=== PATIENT | male | born 1950 | race Caucasian/White ===

== ENCOUNTER 2023-01-16 11:48 | Emergency (ER) | payer BC, SELFPAY ==
--- NOTE | ~2023-01-16 | CT_ITS ---
EXAMINATION: CT ABDOMEN AND PELVIS WITH CONTRAST CLINICAL INFORMATION: Pain. COMPARISON: None available. TECHNIQUE: Multidetector volumetric images were obtained from the superior aspect of the liver through the pubic symphysis following administration 85 mL of Omnipaque 350 intravenous contrast. Sagittal and coronal reformatted images were obtained on the technologist's workstation. Oral contrast: No This CT examination was performed using dose optimization techniques as appropriate, variously including the following: *Automated exposure control *Adjustment of mA and/or kV according to patient size (this includes techniques or standardized protocols for targeted exams where dose is matched to indication/reason for exam; i.e. extremities or head) *Use of iterative reconstruction technique DLP: 511 mGy-cm FINDINGS: LUNG BASES: There is minimal dependent atelectatic change at the lung bases. LIVER, GALLBLADDER, AND BILIARY TREE: The liver is normal in size, shape, and attenuation. No focal hepatic lesion or biliary ductal dilatation is present. The gallbladder is unremarkable with no evidence of radiopaque gallstones, gallbladder wall thickening, or obvious pericholecystic inflammatory changes. PANCREAS: Atrophic. SPLEEN: Unremarkable. ADRENAL GLANDS: Unremarkable. KIDNEYS AND URETERS: The kidneys are normal in size, shape, and attenuation. No hydronephrosis, hydroureter, or calculi seen. No perinephric stranding. BLADDER: Unremarkable. GASTROINTESTINAL TRACT: There are diverticula of the descending and the sigmoid colon without diverticulitis. The appendix is not identified as a separate structure. There are mildly dilated mid small bowel loops measuring up to 3.1 cm entering an umbilical hernia with normal caliber bowel exiting the hernia and distended bowel within the hernia. ABDOMINAL WALL: There is an umbilical hernia containing portions of small bowel and some fluid. LYMPH NODES: Normal. VASCULAR: Unremarkable. PELVIC VISCERA: Unremarkable. OSSEOUS STRUCTURES: There is diffuse thoracolumbar disc degenerative change. CT/CT abdomen pelvis w IV con IMPRESSION: Mildly dilated mid small bowel loops entering an umbilical hernia containing distended small bowel and fluid within normal caliber exiting small bowel. Findings consistent with bowel incarceration with early or partial small bowel obstruction. 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 Fleischner guidelines were followed.
[2023-01-16 11:52] VITALS: BP 110/60; PULSE 48; O2SAT 99; BMI 27.3
[2023-01-16 12:03] VITALS: BP 141/45; PULSE 52; RESP 16; TEMP 36.4; O2SAT 100
[2023-01-16 13:02] VITALS: BP 149/64; PULSE 56; RESP 16; TEMP 36.4; O2SAT 96
[2023-01-16 13:06] LABS: Basophils Absolute Auto 0.1 X10*3/uL (0.0-0.2); Basophils Percent Auto 0.7 % (0-2); Eosinophils Absolute Auto 0.1 X10*3/uL (0.0-0.4); Eosinophils Percent Auto 1.9 % (0-4); Hematocrit 35.3 % (42.0-52.0); Hemoglobin 11.4 g/dl (14.0-18.0); Imm Gran Abs Auto 0.02 X10*3/uL (0.00-0.03); Imm Gran Pct Auto 0.3 % (0.0-0.4); Lymphocytes Absolute Auto 1.7 X10*3/uL (1.2-4.9); Lymphocytes Percent Auto 22.9 % (20-40); MANUAL DIFF FLAG NO; Mean Corpuscular HGB Conc 32.3 g/dl (31.0-36.0); Mean Corpuscular Hemoglobin 28.8 pg (27.0-33.0); Mean Corpuscular Volume 89.1 fL (80.0-98.0); Mean Platelet Volume 10.3 fL (9.4-12.4); Monocytes Absolute Auto 0.5 X10*3/uL (0.1-1.2); Monocytes Percent Auto 6.1 % (2-11); Neutrophils Absolute Auto 5.2 x10*3/uL (2.0-8.3); Neutrophils Percent Auto 68.1 % (45-73); Platelet Count 206 X10*3/uL (160-400); Red Blood Count 3.96 X10*6/uL (4.60-5.80); Red Cell Distribution Width 14.9 % (11.0-16.0); White Blood Count 7.6 X10*3/uL (4.8-10.8)
--- NOTE | 2023-01-16 13:16 | ED_ITS ---
HPI - Abdominal Pain General Chief Complaint: Abdominal Pain Stated Complaint: LRQ PAIN Time Seen by Provider: 01/16/23 12:28 Source: patient Mode of arrival: ambulatory Limitations: no limitations History of Present Illness HPI narrative: It is is a 72-year-old male history of recent intracranial hemorrhage with aphasia , no past abdominal surgical history presenting to the emergency department with complaints of abdominal pain that started this morning at approximately 10:30, patient reports initially the pain was localized to the left side of his abdomen now on the right, reports pain was severe in nature, 10 now is a little bit more tolerable however localized to the right side of his abdomen worse if he presses on his abdomen. He reports some associated nausea however no vomiting. Denies urinary changes, changes in bowel habits, fevers, chills, chest pain, shortness of breath, headache, vision changes, dizziness and weakness Related Data Previous Rx's Medication Instructions Recorded morphine 15 mg immediate release 15 mg PO Q6H PRN pain 5 days #10 01/16/23 tablet tabs Allergies Allergy/AdvReac Type Severity Reaction Status Date / Time No Known Allergies Allergy Verified 01/16/23 11:52 Review of Systems Review of Systems Constitutional : No Weight loss, No Fever, No Chills, No Fatigue, No Malaise ENT/Mouth : No sore throat, No Rhinorrhea Eyes: No Eye Pain, No Swelling, No Redness Cardiovascular : No Chest Pain, No SOB, No Dyspnea on Exertion, No Orthopnea, No Edema, No Palpitations Respiratory : No Cough, No Sputum, No Wheezing Gastrointestinal : + Nausea, No Vomiting, No Diarrhea, No Constipation, + abdominal Pain, No Hematochezia, No Melena Genitourinary : No Dysuria, No Urinary Frequency, No Hematuria, Musculoskeletal : No joint pain, No Myalgias, No Joint Swelling Skin : No Skin Lesions, No rash Neuro : No Weakness, No Numbness, No Dizziness, No Headache Psych : No Anxiety/Panic, No Depression All other systems reviewed and are negative Yes all other systems are reviewed and are negative [facility] Past Medical History Attestation statement: The following information was validated with the patient. Source: old records reviewed and nursing notes reviewed Social History Social History Smoked in Last 30 Days: No Use of substances other than those prescribed or required for medical reasons: No Advance Directives: No Advance Directives Information Provided: No Physical Exam ED Vital Signs: Vital Signs - 24 hr 01/16/23 12:03 01/16/23 13:02 01/16/23 14:46 Temperature 97.6 F 97.6 F Pulse Rate 52 56 53 Respiratory Rate 16 16 14 Blood Pressure 141/45 H 149/64 H 158/76 H Pulse Oximetry 100 96 100 Oxygen Delivery Method Room Air Room Air Oxygen Flow Rate 99 01/16/23 15:44 Temperature 97.9 F Pulse Rate 59 Respiratory Rate 16 Blood Pressure 162/66 H Pulse Oximetry 97 Oxygen Delivery Method Room Air Oxygen Flow Rate BMI result Body Mass Index 27.3 vss Appearance: Alert.? Oriented X3.? No acute distress.? Head: Normocephalic, atraumatic, no step-offs or deformities Eyes: Pupils equal, round and reactive to light.? ENT: Pharynx normal.? Neck: Normal inspection.? Neck supple.? CVS: Normal heart rate and rhythm.? Pulses normal.? Respiratory: No respiratory distress.? Breath sounds normal.? Abdomen: Soft and tenderness to palpation to entire right side of abdomen.? Normoactive bowel sounds throughout. Skin: Skin warm and dry.? Normal skin color.? Normal skin turgor.? Extremities: No lower extremity edema.? No calf ttp. 5/5 strength to bilateral upper and lower extremities Neuro: Oriented X 3.? No motor deficit.? No sensory deficit. CN 2-12 intact Course Reevaluation(s) Reevaluation #1: CBC with no acute findings requiring intervention there is a normocytic anemia noted. Chemistry with slightly elevated BUN likely secondary to poor p.o. intake/dehydration. Normal lipase. CT abdomen and pelvis pending. Urine pending. Time: 14:53 Reevaluation #2: CT scan showing mildly dilated small bowel loops entering an umbilical hernia containing distended small bowel with fluid and normal caliber our existing small bowel findings consistent with bowel incarceration with earlier partial small bowel obstruction. Dr. Betancourt came down to evaluate patient was able to reduce hernia noted on CT scan, without difficulty. No need for NG tube. He recommends discharge home with outpatient follow-up, no need for inpatient admission. Patient's pain is well controlled. Will give him outpatient follow- up. Will send morphine for pain control if needed. No signs of acute abdomen. Educated patient on diagnosis and treatment plan, answered all question, patient verbalizes understanding. At this time patient will be discharged home, advised to return with new or worsening symptoms. Educated on worrisome signs and symptoms and when to return. At this time I feel comfortable discharge home. Time: 16:04 Medical Decision Making Medical Decision Making [facility] Narrative: 72-year-old male presents with abdominal pain that started at 10:30 this morning with associated nausea. No associated trauma. Denies fevers and chills. No urinary changes or changes in bowel habits. Physical exam significant for Soft and tenderness to palpation to entire right side of abdomen.? Normoactive bowel sounds throughout. Concerns for possible diverticulitis, obstruction, kidney stone, UTI versus cystitis. Unlikely acute abdomen, appendicitis, cholecystitis, cholangitis, choledocholithiasis, pancreatitis. Plan at this time in labs, urine, imaging. Differential Diagnosis Differential Diagnoses: The differential diagnosis associated with the presentation includes Concerns for possible diverticulitis, obstruction, kidney stone, UTI versus cystitis. Unlikely acute abdomen, appendicitis, cholecystitis, cholangitis, choledocholithiasis, pancreatitis. Admission/Observation Consideration of admission/observation: Escalation of care including admission/observation considered Possible Consult Healthcare Provider Management of the patient was discussed with: Adjunct Trainer (General surgery) Lab Data [facility] Lab Attestation statement: I reviewed the patient's lab results. 01/16/23 13:00 01/16/23 13:00 Labs: Lab Results 01/16/23 Range/Units 13:00 WBC 7.6 (4.8-10.8) X10*3/uL RBC 3.96 L (4.60-5.80) X10*6/uL Hgb 11.4 L (14.0-18.0) g/dl Hct 35.3 L (42.0-52.0) % MCV 89.1 (80.0-98.0) fL MCH 28.8 (27.0-33.0) pg MCHC 32.3 (31.0-36.0) g/dl RDW 14.9 (11.0-16.0) % Plt Count 206 (160-400) X10*3/uL MPV 10.3 (9.4-12.4) fL Immature Gran % (Auto) 0.3 (0.0-0.4) % Neut % (Auto) 68.1 (45-73) % Lymph % (Auto) 22.9 (20-40) % Creek % (Auto) 6.1 (2-11) % Eos % (Auto) 1.9 (0-4) % Baso % (Auto) 0.7 (0-2) % Lymph # (Auto) 1.7 (1.2-4.9) X10*3/uL Creek # (Auto) 0.5 (0.1-1.2) X10*3/uL Eos # (Auto) 0.1 (0.0-0.4) X10*3/uL Baso # (Auto) 0.1 (0.0-0.2) X10*3/uL Abs Immat Gran (auto) 0.02 (0.00-0.03) X10*3/uL Absolute Neuts (auto) 5.2 (2.0-8.3) x10*3/uL Absolute Nucleated RBC 0.000 (0.0-0.012) X10*3/uL Nucleated RBC % (auto) 0.0 (0.0-0.2) /100WBC Sodium 139 (135-145) mmol/L Potassium 4.6 (3.3-5.1) mmol/L Chloride 106 (96-108) mmol/L Carbon Dioxide 26 (22-29) mmol/L Anion Gap 12 (12-20) BUN 31 H (9-16) mg/dL Creatinine 1.05 (0.5-1.4) mg/dL Estim Creat Clear Calc 60.3 Estimated GFR > 60 Random Glucose 132 H (60-115) mg/dL Calcium 9.3 (8.4-10.2) mg/dL Magnesium 2.2 (1.6-2.6) mg/dL Total Bilirubin 0.3 (0.0-1.0) mg/dL AST 12 (5-37) U/L ALT 7 (0-40) U/L Alkaline Phosphatase 62 (39-117) U/L Total Protein 7.3 (6.5-8.0) g/dL Albumin 3.9 (3.5-5.0) g/dL Lipase 4 L (8-78) U/L Independent Interpretation I performed an independent interpretation of an: CT Scan (CT/CT abdomen pelvis w IV con IMPRESSION: Mildly dilated mid small bowel loops entering an umbilical hernia containing distended small bowel and fluid within normal caliber exiting small bowel. Findings consistent with bowel incarceration with early or partial small bowel obstruction. Diverticula ) Radiology Impression Discussion of test interpretation with radiology: I have reviewed the radiologist's reading. Prescription Management I considered prescription management with: Pain Medication Medications Administered Discontinued Medications Generic Name Dose Route Start Last Admin Trade Name Erin PRN Reason Stop Dose Admin Iohexol 100 ml 01/16/23 15:17 01/16/23 15:17 Iohexol 350 Mg/Ml 100 Ml Infus..Btl IV 01/16/23 15:18 85 ml ONCE ONE Administration Critical Care Time Critical Care Time Critical Care Time: Yes Total Critical Care Time: 35 Attestation: I attest to this time spent taking care of the patient, obtaining history, physical, reviewing labs, imaging, speaking to my attending, speaking to specialist. Discharge Plan Discharge Clinical Impression: Abdominal pain, Hernia, umbilical Patient Disposition: Home, Self-Care Instructions: Umbilical Hernia (ED), Abdominal Pain (ED) Additional Instructions: Take your medications as prescribed. If you were prescribed antibiotics today, it is important that you take your medication to their entirety, do not skip any doses, do not finish them early. Follow-up with your primary care provider this week. Follow up with general surgery. Return with any new or worsening symptoms Return to the emergency department with new or worsening symptoms. Such as fevers, chills, chest pain, shortness of breath, nausea, vomiting, dizziness, headache, vision changes, lethargy In case of emergency call 911 A narcotic has been sent to your pharmacy please take this as prescribed. Do not take more than the prescribed dose. Narcotic medications can cause addiction. Please do not mix them with alcohol. Do not take them while driving or operating machinery. Do not take them with any other narcotics. Do not share them with friends or family. They can cause constipation. Take them only for severe pain. CT/CT abdomen pelvis w IV con IMPRESSION: Mildly dilated mid small bowel loops entering an umbilical hernia containing distended small bowel and fluid within normal caliber exiting small bowel. Findings consistent with bowel incarceration with early or partial small bowel obstruction. 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 Fleischner guidelines were followed. Prescriptions: New morphine 15 mg tablet 15 mg PO Q6H PRN (Reason: pain) 5 Days Qty: 10 0RF Rx Instructions: Partial Fill upon patient request. Ref[place]: [facility] [Provider Group] - 2 days Physician,Unknown J [Primary Care Provider] - 2 days Stand Alone Forms: Work/School Release
[2023-01-16 13:19] LABS: Alanine Aminotransferase 7 U/L (0-40); Albumin Level 3.9 g/dL (3.5-5.0); Alkaline Phosphatase 62 U/L (39-117); Anion Gap 12 (12-20); Aspartate Amino Transferase 12 U/L (5-37); Bilirubin Total 0.3 mg/dL (0.0-1.0); Blood Urea Nitrogen 31 mg/dL (9-16); Calcium 9.3 mg/dL (8.4-10.2); Carbon Dioxide 26 mmol/L (22-29); Chloride 106 mmol/L (96-108); Creatinine Clr Calc Pharmacy 60.3; Estimated Glomerular Filt Rate > 60; Glucose Random 132 mg/dL (60-115); Lipase 4 U/L (8-78); Magnesium 2.2 mg/dL (1.6-2.6); Potassium 4.6 mmol/L (3.3-5.1); Sodium 139 mmol/L (135-145); Total Protein 7.3 g/dL (6.5-8.0)
[2023-01-16 14:46] VITALS: BP 158/76; PULSE 53; RESP 14; O2SAT 100
[2023-01-16] MEDS: iohexoL 350 MG/ML 100 ML INFUS..BTL IV (15:17)
[2023-01-16 15:44] VITALS: BP 162/66; PULSE 59; RESP 16; TEMP 36.6; O2SAT 97
--- NOTE | 2023-01-16 15:45 | MHC.EDTECH ---
This pct assumed care of pt at 1500 ,vitals taken ,pt resting quietly in bed .
--- NOTE | 2023-01-16 16:05 | PM.CNGS ---
History of Present Illness Consult details Consult date: 01/16/23 Requesting physician: Bob Paredes Narrative: 72-year-old male patient presenting with complaints of severe abdominal pain in the lower abdomen starting at approximately 10:30 this morning. He denies a previous history of similar pain and after a telehealth visit with his visiting nurse, was felt to require further Evaluation in the emergency department. He reports nausea without vomiting. He denies a previous history of similar complaints. He was recently discharged from [facility] after apparently developing an intracerebral bleed which did not require surgery. He now has aphasia as result of the bleed. He also required several toe amputations. Of on presentation to the emergency department he was noted to have a normal WBC and subsequent CT abdomen and pelvis revealed an incarcerated umbilical hernia small-bowel obstruction associated with the hernia. Also noted was a diverticula sigmoid colon without diverticulitis. Surgical consultation was requested regarding the umbilical hernia incarceration. Review of Systems Review of Systems: Yes Unobtainable due to mental condition PMFSH Social History Social History Smoked in Last 30 Days: No Use of substances other than those prescribed or required for medical reasons: No Advance Directives: No Advance Directives Information Provided: No Meds Allergies Allergy/AdvReac Type Severity Reaction Status Date / Time No Known Allergies Allergy Verified 01/16/23 11:52 Physical Exam Vital Signs: Vital Signs: Last Vital Signs Temp 97.9 F 01/16/23 15:44 Pulse 59 01/16/23 15:44 Resp 16 01/16/23 15:44 BP 162/66 H 01/16/23 15:44 Pulse Ox 97 01/16/23 15:44 O2 Del Method Room Air 01/16/23 15:44 O2 Flow Rate 99 01/16/23 12:03 BMI result Body Mass Index 27.3 Const: General: no acute distress and tired appearing Nutritional Appearance: thin HEENT: Head: Yes normocephalic and Yes atraumatic Resp: Effort & Inspection: normal respiratory effort, no audible wheezes and no cough GI: Other: Patient with a moderate-sized umbilical hernia. Gentle pressure on the hernia allowed for easy reduction the abdominal cavity. The actual defect measures approximately 1.5 cm in diameter. Following reduction the abdomen is found to be soft nondistended, nontender rebound, guarding or rigidity. Inspection: Yes normal to inspection and No distended Palpation (GI): Soft to palpation and Hernia present umbilical Skin: General skin exam: no rashes or lesions noted Extrem: General: Yes no clubbing, cyanosis or edema Results Labs 01/16/23 13:00 01/16/23 13:00 Labs: Abnormal lab results 01/16/23 Range/Units 13:00 RBC 3.96 L (4.60-5.80) X10*6/uL Hgb 11.4 L (14.0-18.0) g/dl Hct 35.3 L (42.0-52.0) % BUN 31 H (9-16) mg/dL Random Glucose 132 H (60-115) mg/dL Lipase 4 L (8-78) U/L Short CBC 01/16/23 Range/Units 13:00 WBC 7.6 (4.8-10.8) X10*3/uL Hgb 11.4 L (14.0-18.0) g/dl Hct 35.3 L (42.0-52.0) % Plt Count 206 (160-400) X10*3/uL BMP 01/16/23 13:00 Sodium 139 Potassium 4.6 Chloride 106 Carbon Dioxide 26 BUN 31 H Creatinine 1.05 Calcium 9.3 Liver Function 01/16/23 Range/Units 13:00 Total Bilirubin 0.3 (0.0-1.0) mg/dL AST 12 (5-37) U/L ALT 7 (0-40) U/L Alkaline Phosphatase 62 (39-117) U/L Albumin 3.9 (3.5-5.0) g/dL All other labs normal. Assessment and Plan (1) Hernia, umbilical: Qualifiers: Obstruction and gangrene presence: with obstruction but without gangrene Qualified Code(s): K42.0 - Umbilical hernia with obstruction, without gangrene Status: Acute (2) Abdominal pain: Qualifiers: Abdominal location: generalized Qualified Code(s): R10.84 - Generalized abdominal pain Status: Acute Plan 72-year-old male patient presenting with evidence of an incarcerated umbilical hernia by CT with subsequent small-bowel obstruction. On examination patient did have a hernia which with gentle pressure was able to be reduced completely. Following reduction of his hernia, the abdomen was soft and nondistended without peritoneal signs. Patient can follow-up in our office in 1-2 weeks to re-evaluate for possible elective umbilical hernia repair. Procedures Date of Service Date of Service: 01/16/23
--- NOTE | 2023-01-19 11:16 | MHC.CM.ED ---
Patient was seen in [facility] 01/16. Received message from Danette at [facility] that patient is active with their agency and requested ER d/c. Sent via [employer] as requested.
== END 2023-01-16 16:30 | disposition home or self-care (01) ==
PROVIDERS: Physician Assistant; Emergency Provider Emergency Medicine
DX: K42.0 Umbilical hernia with obstruction, without gangrene (principal); R10.31 Right lower quadrant pain; Z79.899 Other long term (current) drug therapy
CPT/HCPCS: 36415; 74177; 80053; 83690; 83735; 85025; 99284; Q9967

== ENCOUNTER → 2023-01-16 12:42 | Outpatient (BNV) | payer BC, SELFPAY | PROVIDERS: Emergency Provider Emergency Medicine; Visit Provider Surgery | DX: K42.0 Umbilical hernia with obstruction, without gangrene (principal); R10.84 Generalized abdominal pain | CPT/HCPCS: 99283 ==

== ENCOUNTER 2023-01-20 08:59 | Inpatient (IN) | payer BC, SELFPAY ==
[2023-01-20] VITALS (10 sets, daily range): BP systolic 100–154; BP diastolic 38–72; PULSE 57–86; RESP 10–20; TEMP 36.2–37.3; O2SAT 94–100; BMI 27.9
--- NOTE | 2023-01-20 09:17 | ED.ABDPAIN ---
HPI - Abdominal Pain General Chief Complaint: Abdominal Pain Stated Complaint: PT C/O HERNIA PER EMS Time Seen by Provider: 01/20/23 09:16 Source: patient, RN notes reviewed and old records reviewed History of Present Illness HPI narrative: 72-year-old male with a past medical history of intracranial hemorrhage with aphasia, diverticulitis, incarcerated umbilical hernia SBO s/p manual reduction by surgery at bedside in the ED on 01/16/23, presenting to the ED via EMS complaining of periumbilical abdominal pain, palpable hernia, nausea, and vomiting beginning last night. Denies fever/chills dysuria/hematuria, constipation. MD elicited complaint: abdominal pain Related Data Previous Rx's Medication Instructions Recorded morphine 15 mg immediate release 15 mg PO Q6H PRN pain 5 days #10 01/16/23 tablet tabs Allergies Allergy/AdvReac Type Severity Reaction Status Date / Time No Known Allergies Allergy Verified 01/16/23 11:52 Review of Systems Review of Systems Constitutional: No Fever, No Chills ENT/Mouth: No Ear Pain, No Nasal Congestion, No sore throat, No Rhinorrhea, No Swallowing Difficulty Cardiovascular: No Chest Pain, No SOB Respiratory: No Cough, No Sputum, No Wheezing Gastrointestinal: + Nausea, + Vomiting, No Diarrhea, No Constipation, + Abdominal pain Genitourinary: No Dysuria, No Urinary Frequency, No Hematuria,No Flank Pain Musculoskeletal: No joint pain, No Myalgias, No Joint Swelling Skin: No Skin Lesions, No rash Neuro: No Weakness Yes all other systems are reviewed and are negative Constitutional: Reports as per [facility] Past Medical History Attestation statement: The following information was validated with the patient. Source: old records reviewed Social History Social History Advance Directives: Yes Advance Directives Information Provided: Yes Advance Directives on File: No Physical Exam ED Vital Signs: Vital Signs - 24 hr 01/20/23 09:12 Temperature 97.7 F Pulse Rate 75 Respiratory Rate 16 Blood Pressure 114/57 L Pulse Oximetry 95 Oxygen Delivery Method Room Air BMI result Body Mass Index 27.9 Const Other: Pale General: cooperative and no acute distress Orientation/consciousness: patient oriented x3 Limitations: no limitations HENMT Head: Yes normal to inspection and Yes atraumatic Ears: hearing grossly normal bilaterally General nose exam: Normal external nose present Face and sinus: Yes normal facial exam Eyes General: appearance normal, both eyes and all related structures EOM: EOMs intact bilaterally Neck Neck: Yes normal visual inspection and Yes no meningeal signs Resp Effort & Inspection: normal respiratory effort and no respiratory distress Auscultation: clear to auscultation bilaterally Cardio Rate: regular rate Heart sounds: S1 normal heart sound present and S2 normal heart sound present GI Palpation (GI): Soft to palpation, Tenderness to palpation present (GI) periumbilically, no guarding, not rigid and Hernia present umbilical (With discoloration, non reducible, tender) General: Yes no CVA tenderness Back/Spine/Pelvis Back: no CVA tenderness Skin Rashes: no rashes Wounds: no wounds Neuro General: patient oriented x3, tone normal and no meningeal signs Cranial nerves: Yes CN's II-XII intact bilaterally Gait exam (Neuro): Normal gait present Extrem General: Yes normal to inspection Course Course Course Narrative: -consulted Dr. Choe originally due to call schedule, however, consulted Dr. Betancourt as he cared for patient previously & he will eval patient in the ED -948--general surgery, Dr. Betancourt consulted and evaluated patient at bedside, unable to reduce hernia. Plan for patient to go to the OR. CT scan cancelled Medical Decision Making Medical Decision Making MDM Narrative: 72-year-old male with a past medical history of intracranial hemorrhage with aphasia, diverticulitis, incarcerated umbilical hernia SBO s/p manual reduction by surgery at bedside in the ED on 01/16/23, presenting to the ED via EMS complaining of periumbilical abdominal pain, palpable hernia, nausea, and vomiting beginning last night. On exam vital signs stable, NAD, pale, appears uncomfortable, abdomen soft with appreciable umbilical hernia with discoloration, tender to palpation, non reducible at bedside. Concern for repeat incarcerated/strangulated hernia with possible SBO. Lower suspicion for diverticulitis/appendicitis Plan: Labs, UA, CT, consult surgery Please refer to course for remaining clinical decision making, interpretation of labs/imaging results, and discussions with consultants and/or family members. Differential Diagnosis Differential Diagnoses: The differential diagnosis associated with the presentation includes As above Admission/Observation Consideration of admission/observation: Escalation of care including admission/observation considered Consult Healthcare Provider Management of the patient was discussed with: Armature Bander (General surgery) Lab Data MDM Lab Attestation statement: I reviewed the patient's lab results. 01/20/23 09:42 01/20/23 09:42 Labs: Lab Results 01/20/23 Range/Units 09:42 WBC 11.5 H (4.8-10.8) X10*3/uL RBC 3.95 L (4.60-5.80) X10*6/uL Hgb 11.5 L (14.0-18.0) g/dl Hct 35.2 L (42.0-52.0) % MCV 89.1 (80.0-98.0) fL MCH 29.1 (27.0-33.0) pg MCHC 32.7 (31.0-36.0) g/dl RDW 14.4 (11.0-16.0) % Plt Count 219 (160-400) X10*3/uL MPV 10.7 (9.4-12.4) fL Immature Gran % (Auto) 0.4 (0.0-0.4) % Neut % (Auto) 86.7 H (45-73) % Lymph % (Auto) 6.6 L (20-40) % [place] % (Auto) 5.9 (2-11) % Eos % (Auto) 0.1 (0-4) % Baso % (Auto) 0.3 (0-2) % Lymph # (Auto) 0.8 L (1.2-4.9) X10*3/uL [place] # (Auto) 0.7 (0.1-1.2) X10*3/uL Eos # (Auto) 0.0 (0.0-0.4) X10*3/uL Baso # (Auto) 0.0 (0.0-0.2) X10*3/uL Abs Immat Gran (auto) 0.05 H (0.00-0.03) X10*3/uL Absolute Neuts (auto) 9.9 H (2.0-8.3) x10*3/uL Absolute Nucleated RBC 0.000 (0.0-0.012) X10*3/uL Nucleated RBC % (auto) 0.0 (0.0-0.2) /100WBC Radiology Impression Discussion of test interpretation with radiology: I have reviewed the radiologist's reading. Independent Historian Clinical information obtained from an independent historian. History obtained from or confirmed by: EMS External Record Review External record reviewed: Inpatient record, Office record, Outpatient record, Prior outpatient labs, Prior outpatient radiology, Primary care record and Outside ED record Tests considered The following testing was considered but not selected: As above Prescription Management I considered prescription management with: Pain Medication Chronic Conditions Patient?s care impacted by: Other Critical Care Time Critical Care Time Critical Care Time: Yes Total Critical Care Time: 35 Attestation: I have personally provided critical care time exclusive of time spent on separately billable procedures. Time includes review of lab data, radiology results, discussion with consultants, and monitoring for potential decompensation. Intervention performed as documented. Discharge Plan Discharge Clinical Impression: Irreducible umbilical hernia Patient Disposition: Admitted As Inpatient
[2023-01-20 09:47] LABS: MANUAL DIFF FLAG NO
[2023-01-20 09:50] LABS: Basophils Percent Auto 0.3 % (0-2); Eosinophils Percent Auto 0.1 % (0-4); Hematocrit 35.2 % (42.0-52.0); Hemoglobin 11.5 g/dl (14.0-18.0); Imm Gran Abs Auto 0.05 X10*3/uL (0.00-0.03); Imm Gran Pct Auto 0.4 % (0.0-0.4); Lymphocytes Absolute Auto 0.8 X10*3/uL (1.2-4.9); Lymphocytes Percent Auto 6.6 % (20-40); Mean Corpuscular HGB Conc 32.7 g/dl (31.0-36.0); Mean Corpuscular Hemoglobin 29.1 pg (27.0-33.0); Mean Corpuscular Volume 89.1 fL (80.0-98.0); Mean Platelet Volume 10.7 fL (9.4-12.4); Monocytes Absolute Auto 0.7 X10*3/uL (0.1-1.2); Monocytes Percent Auto 5.9 % (2-11); Neutrophils Absolute Auto 9.9 x10*3/uL (2.0-8.3); Neutrophils Percent Auto 86.7 % (45-73); Platelet Count 219 X10*3/uL (160-400); Red Blood Count 3.95 X10*6/uL (4.60-5.80); Red Cell Distribution Width 14.4 % (11.0-16.0); White Blood Count 11.5 X10*3/uL (4.8-10.8)
[2023-01-20 09:55] LABS: Prothrombin Time 11.6 SEC (11.1-13.3)
--- NOTE | 2023-01-20 09:59 | P.CONAN_ITS ---
Documented by User: Kaitlin Montes De Oca MD 01/20/23 11:49 PENDING SALE TO [facility] Active Problems Active Problems: All Active Problems (Updated 01/20/23 @ 09:52 by SALAZAR Yousif) Irreducible umbilical hernia (Acute) Past Medical History Medical History (Updated 01/20/23 @ 12:29 by Anisha Castellanos MD) Diabetes mellitus Aphasia Surgical History Surgical History (Updated 01/20/23 @ 12:29 by Anisha Castellanos MD) Amputation toe H/O craniotomy Social History Social History (Updated 01/20/23 @ 12:35 by Anisha Castellanos MD) Patient Tobacco Use Status: Former Tobacco user Quit Date: Insignificant use. Only very briefly in the 70s Meds Allergies Allergy/AdvReac Type Severity Reaction Status Date / Time No Known Allergies Allergy Verified 01/20/23 11:02 Active Medications: Current Medications Sodium Chloride (Ns) 1,000 mls @ 999 mls/hr IV .Q1H1M GIAN Stop: 01/20/23 10:30 Home Medications Medication Instructions Recorded Confirmed Last Taken Type Lantus Solostar U-100 Insulin 01/20/23 01/19/23 21:00 History 5 units calcium carbonate 600 mg-vitamin 1 tab PO DAILY 01/20/23 01/20/23 Unknown History D3 5 mcg (200 unit) tablet ergocalciferol (vitamin D2) 1,250 1,250 mcg PO QWEEK 01/20/23 01/20/23 Unknown History mcg (50,000 unit) capsule ferrous sulfate 325 mg (65 mg 325 mg PO DAILY 01/20/23 01/20/23 Unknown History iron) tablet finasteride 5 mg tablet 5 mg PO DAILY 01/20/23 01/20/23 Unknown History folic acid 1 mg tablet 1 mg PO DAILY 01/20/23 01/20/23 Unknown History insulin lispro 100 unit/mL 01/20/23 Unknown History subcutaneous solution levetiracetam 500 mg tablet 500 mg PO BID 01/20/23 01/20/23 Unknown History magnesium hydroxide 01/20/23 Unknown History midodrine 5 mg tablet 5 mg PO TID 01/20/23 01/20/23 Unknown History mirtazapine 7.5 mg tablet 7.5 mg PO BEDTIME 01/20/23 01/20/23 Unknown History tamsulosin 0.4 mg capsule 0.4 mg PO BEDTIME 01/20/23 01/20/23 Unknown History Exam Height,Weight and Vital Signs: Height 5 ft 6 in Weight 78.5 kg Last Vital Signs Temp 97.7 F 01/20/23 09:12 Pulse 75 01/20/23 09:12 Resp 16 01/20/23 09:12 BP 114/57 L 01/20/23 09:12 Pulse Ox 95 01/20/23 09:12 O2 Del Method Room Air 01/20/23 09:12 Pertinent Lab Results Pertinent Lab Results: Laboratory Tests 01/20/23 09:42 WBC 11.5 H RBC 3.95 L Hgb 11.5 L Hct 35.2 L MCV 89.1 MCH 29.1 MCHC 32.7 RDW 14.4 Plt Count 219 MPV 10.7 Immature Gran % (Auto) 0.4 Neut % (Auto) 86.7 H Lymph % (Auto) 6.6 L [place] % (Auto) 5.9 Eos % (Auto) 0.1 Baso % (Auto) 0.3 Lymph # (Auto) 0.8 L [place] # (Auto) 0.7 Eos # (Auto) 0.0 Baso # (Auto) 0.0 Abs Immat Gran (auto) 0.05 H Absolute Neuts (auto) 9.9 H Absolute Nucleated RBC 0.000 Nucleated RBC % (auto) 0.0 PT 11.6 INR 1.0 Documented by User: Anisha Castellanos MD 01/20/23 12:42 HPI - Anesthesia Eval Consult details Narrative: 72 yo male patient with recurrent, now non-reducible incarcerated umbilical hernia. Patient initially seen 01/16/23 in ER and hernia reduced. For repair with mesh. H/o intracranial hemorrhage 09/2022 following a fall. Now with aphasia. PMFSH Active Problems Active Problems: All Active Problems (Updated 01/20/23 @ 12:22 by Anisha Castellanos MD) Irreducible umbilical hernia (Acute) DM N&V x 4 this morning H/o falls Had been on midodrine tid for low BP. Now only prn Ambulates with cane BPH Past Medical History Medical History (Updated 01/20/23 @ 12:29 by Anisha Castellanos MD) Diabetes mellitus Aphasia Family History Family history of problems with anesthesia: No Surgical History Surgical History (Updated 01/20/23 @ 12:29 by Anisha Castellanos MD) Amputation toe H/O craniotomy History of Problems with Anesthesia: No Social History Social History (Updated 01/20/23 @ 12:35 by Anisha Castellanos MD) Patient Tobacco Use Status: Former Tobacco user Quit Date: Insignificant use. Only very briefly in the 70s Meds Allergies Allergy/AdvReac Type Severity Reaction Status Date / Time No Known Allergies Allergy Verified 01/20/23 11:02 Home Medications Medication Instructions Recorded Confirmed Last Taken Type Lantus Solostar U-100 Insulin 01/20/23 01/19/23 21:00 History 5 units calcium carbonate 600 mg-vitamin 1 tab PO DAILY 01/20/23 01/20/23 Unknown History D3 5 mcg (200 unit) tablet ergocalciferol (vitamin D2) 1,250 1,250 mcg PO QWEEK 01/20/23 01/20/23 Unknown History mcg (50,000 unit) capsule ferrous sulfate 325 mg (65 mg 325 mg PO DAILY 01/20/23 01/20/23 Unknown History iron) tablet finasteride 5 mg tablet 5 mg PO DAILY 01/20/23 01/20/23 Unknown History folic acid 1 mg tablet 1 mg PO DAILY 01/20/23 01/20/23 Unknown History insulin lispro 100 unit/mL 01/20/23 Unknown History subcutaneous solution levetiracetam 500 mg tablet 500 mg PO BID 01/20/23 01/20/23 Unknown History magnesium hydroxide 01/20/23 Unknown History midodrine 5 mg tablet 5 mg PO TID 01/20/23 01/20/23 Unknown History mirtazapine 7.5 mg tablet 7.5 mg PO BEDTIME 01/20/23 01/20/23 Unknown History tamsulosin 0.4 mg capsule 0.4 mg PO BEDTIME 01/20/23 01/20/23 Unknown History Exam Pertinent Lab Results Pertinent Lab Results: Laboratory Tests 01/20/23 09:42 WBC 11.5 H RBC 3.95 L Hgb 11.5 L Hct 35.2 L MCV 89.1 MCH 29.1 MCHC 32.7 RDW 14.4 Plt Count 219 MPV 10.7 Immature Gran % (Auto) 0.4 Neut % (Auto) 86.7 H Lymph % (Auto) 6.6 L [place] % (Auto) 5.9 Eos % (Auto) 0.1 Baso % (Auto) 0.3 Lymph # (Auto) 0.8 L [place] # (Auto) 0.7 Eos # (Auto) 0.0 Baso # (Auto) 0.0 Abs Immat Gran (auto) 0.05 H Absolute Neuts (auto) 9.9 H Absolute Nucleated RBC 0.000 Nucleated RBC % (auto) 0.0 PT 11.6 INR 1.0 Laboratory Results - last 24 hr 01/20/23 01/20/23 09:42 11:25 WBC 11.5 H RBC 3.95 L Hgb 11.5 L Hct 35.2 L MCV 89.1 MCH 29.1 MCHC 32.7 RDW 14.4 Plt Count 219 MPV 10.7 Immature Gran % (Auto) 0.4 Neut % (Auto) 86.7 H Lymph % (Auto) 6.6 L [place] % (Auto) 5.9 Eos % (Auto) 0.1 Baso % (Auto) 0.3 Lymph # (Auto) 0.8 L [place] # (Auto) 0.7 Eos # (Auto) 0.0 Baso # (Auto) 0.0 Abs Immat Gran (auto) 0.05 H Absolute Neuts (auto) 9.9 H Absolute Nucleated RBC 0.000 Nucleated RBC % (auto) 0.0 PT 11.6 INR 1.0 Sodium 136 Potassium 4.5 Chloride 103 Carbon Dioxide 26 Anion Gap 12 BUN 25 H Creatinine 1.14 Estim Creat Clear Calc 58.5 Estimated GFR > 60 POC Glucose 172 H Random Glucose 216 H Lactic Acid 1.0 Calcium 9.5 Magnesium 1.9 Total Bilirubin 0.4 Direct Bilirubin 0.2 AST 11 ALT 7 Alkaline Phosphatase 68 Total Protein 7.1 Albumin 3.8 Lipase < 4 L Airway Mallampati Class: II TM Dist: >3cm Neck ROM: Full Partial: Upper Loose/Missing/Broken Teeth: Yes (Many loose teeth-front and sides, a few broken teeth. Explained to patient and son about possibility of dislodgement/loss) Heart: RRR Lungs: CTAB Assessment and Plan Assessment Anesthesia Assessment: Anesthesia Plan Discussed and Chart Reviewed Final Anesthetic Review Family History of Problems with Anesthesia: No History of Problems with Anesthesia: No NPO: Yes ASA Class: III and Emergency Final Preanesthetic Review: No Changes in Pt Med Stat, Meds/Allgs Chart Reviewed, Consent Obtained/Reviewed and Anes Risks/Benef Reviewed Patient Risk: Intermediate Procedure Risk: Intermediate Assessment/Block/Sedation in SS: Assess/Block/Sedation-SS Anesthetic Plan Anesthetic Plan: GA Disposition: Standard PACU
--- NOTE | 2023-01-20 10:00 | PM.HPGS ---
History of Present Illness History of Present Illness Date of Service: 01/20/23 Chief complaint: PT C/O HERNIA PER EMS Narrative: 72-year-old male patient previously evaluated 01/16/2023 for an incarcerated umbilical hernia which was able to be reduced easily with resolution of symptoms, now returning with recurrent incarcerated umbilical hernia with associated abdominal pain, nausea and vomiting. He reports having several episodes of vomiting during the day. His son tried to reduce the hernia but was unsuccessful. He was recently discharged from [facility] after perianally developing intracerebral bleed which did not require surgery. He developed some aphasia and required toe amputations . Laboratories today reveal a WBC of 11.5. Previous CT abdomen and pelvis revealed an incarcerated umbilical hernia small-bowel obstruction associated with the hernia. Also noted was a diverticula sigmoid colon without diverticulitis. Surgical consultation was requested regarding the umbilical hernia incarceration. Review of Systems Review of Systems: Yes Unobtainable due to mental condition PMFSH Social History Social History Advance Directives: Yes Advance Directives Information Provided: Yes Advance Directives on File: No Meds Allergies Allergy/AdvReac Type Severity Reaction Status Date / Time No Known Allergies Allergy Verified 01/16/23 11:52 Active Medications: Current Medications Sodium Chloride (Ns) 1,000 mls @ 999 mls/hr IV .Q1H1M GIAN Stop: 01/20/23 10:30 Physical Exam Vital Signs: Vital Signs: Last Vital Signs Temp 97.7 F 01/20/23 09:12 Pulse 75 01/20/23 09:12 Resp 16 01/20/23 09:12 BP 114/57 L 01/20/23 09:12 Pulse Ox 95 01/20/23 09:12 O2 Del Method Room Air 01/20/23 09:12 BMI result Body Mass Index 27.9 Const: General: no acute distress and tired appearing Nutritional Appearance: thin HEENT: Head: Yes normocephalic and Yes atraumatic Resp: Effort & Inspection: normal respiratory effort, no audible wheezes and no cough GI: Other: Patient with a moderate-sized umbilical hernia with some overlying redness in the skin. Gentle pressure was applied to the hernia however the hernia would not reduce as previously. Hernia defect is approximately 1.5 cm in diameter and non reducible. Abdomen is otherwise soft and nondistended negative for rebound, guarding or rigidity . Inspection: Yes normal to inspection and No distended Palpation (GI): Soft to palpation and Hernia present umbilical Skin: General skin exam: no rashes or lesions noted Extrem: General: Yes no clubbing, cyanosis or edema Results Results Labs: Short CBC 01/20/23 Range/Units 09:42 WBC 11.5 H (4.8-10.8) X10*3/uL Hgb 11.5 L (14.0-18.0) g/dl Hct 35.2 L (42.0-52.0) % Plt Count 219 (160-400) X10*3/uL Assessment and Plan (1) Irreducible umbilical hernia: Status: Acute Plan 72-year-old male patient returning with an incarcerated umbilical hernia, non reducible. After discussion of the procedure, risks, and alternatives, he consents to repair of this incarcerated umbilical hernia with mesh. He has been added onto the operative schedule for later today. He denies eating or drinking all day today. Quality Stroke Does the patient have a stroke diagnosis?: No VTE Prior VTE?: No VTE Risk Level:: Surgical - moderate VTE Device Contraindication: N/A - Device Ordered VTE Drug Contraindication: Treatment Not Indicated Procedures Date of Service Date of Service: 01/20/23
[2023-01-20] MEDS: ondansetron HCL 4 MG/2 ML VIAL IVPUSH (10:01)
[2023-01-20] MEDS: 0.9 % Sodium Chloride 1,000 ML 999 ML IV (10:01)
[2023-01-20] MEDS: Morphine Sulfate 2 MG/ML CARTRIDGE IVPUSH (10:02)
[2023-01-20 10:06] LABS: Alanine Aminotransferase 7 U/L (0-40); Albumin Level 3.8 g/dL (3.5-5.0); Alkaline Phosphatase 68 U/L (39-117); Anion Gap 12 (12-20); Aspartate Amino Transferase 11 U/L (5-37); Bilirubin Direct 0.2 mg/dL (0.0-0.5); Bilirubin Total 0.4 mg/dL (0.0-1.0); Blood Urea Nitrogen 25 mg/dL (9-16); Calcium 9.5 mg/dL (8.4-10.2); Carbon Dioxide 26 mmol/L (22-29); Chloride 103 mmol/L (96-108); Creatinine Clr Calc Pharmacy 58.5; Estimated Glomerular Filt Rate > 60; Glucose Random 216 mg/dL (60-115); Lipase < 4 U/L (8-78); Magnesium 1.9 mg/dL (1.6-2.6); Potassium 4.5 mmol/L (3.3-5.1); Sodium 136 mmol/L (135-145); Total Protein 7.1 g/dL (6.5-8.0)
[2023-01-20 11:29] LABS: Glucose, Whole Blood 172 mg/dL (60-115)
--- NOTE | 2023-01-20 11:30 | PC.NURSE ---
Patient arrived to preop. Patient alert to only self. History and most recent medication list obtained by his son, Jhon Nash, who was present at bedside. Patient arrived with $608.00 bobby. This counted by two RNs and given to son.
[2023-01-20] MEDS: Lactated Ringers 1,000 ML 100 ML IVCONT ×2 (11:32→20:55)
--- NOTE | 2023-01-20 14:10 | P.OP_ITS ---
Operative Note Operative Note Date of Service: 01/20/23 Narrative: Preoperative diagnosis: incarcerated umbilical hernia Postoperative diagnosis: same Procedure: repair of incarcerated umbilical hernia with mesh Surgeon: Wing Betancourt MD Wind Turbine Installer: none Anesthesia: general LMA Indications for procedure: 72-year-old male patient with a recurrent umbilical hernia incarceration. Presented with nausea and vomiting, abdominal pain distension. On examination umbilical hernia was identified with reddish changes in the skin. Hernia could not be reduced with light pressure. Operative findings: Incarcerated umbilical hernia with viable bowel within the sac. Specimen: Hernia sac Estimated blood loss: 5 mL Complications: none Procedure details: patient was brought to the OR placed in a supine position. After administering general anesthesia patient's abdomen was prepped with ChloraPrep and draped in a sterile fashion. A surgical time-out was called the consent confirmed. Patient received preoperative antibiotics and Venodyne boots were in place. Local anesthesia was infiltrated in the midline around the umbilicus. The midline incision was then made with scalpel carried out through subcutaneous tissue up to the hernia sac. The hernia sac was then dissected circumferentially down to the fascial defect. The sac was then entered and a small amount of bloody fluid evacuated. A small loop of bowel was noted to be incarcerated within the specimen. This did have bluish discoloration. The fascia was opened further proximally and the bowel reduced into the abdominal cavity. This was watched for several minutes and found to be viable with no further ischemia. The redundant sac was then excised and sent to pathology for further examination. Peritoneum was then closed using a running 0 Polysorb suture. A preperitoneal space was then created using blunt dissection and electrocautery. A 6.4 cm Ventralex mesh [place] [employer] [place] was then obtained. This was deployed within the preperitoneal space. The mesh was then secured in 4 quadrants using 1 Tycron sutures. Fascia was then closed over the mesh using [id number] 1 Tycron sutures. Approximately 3 mL of Zenrelef was infiltrated into the preperitoneal space prior to completely closing the fascia. Wounds were then irrigated and suctioned dry. Umbilical skin was then secured to the fascia using a 3-0 Polysorb suture. Dermis was then closed using interrupted 3-0 Polysorb sutures. Skin was then closed using a running subcuticular 4-0 Polysorb suture. Dressings were then applied including Steri-Strips, 4 x 4 gauze and Tegaderm. The patient tolerated the procedure well. Sponge, instrument, and needle counts were reported as correct. Patient was transferred to PACU in stable condition.
--- NOTE | 2023-01-20 14:27 | PHA.MEDREC ---
Pharmacy Consult ? Medication Reconciliation Pharmacy has completed the medication reconciliation.pharmacy has reviewed the med rec done by nursing and made corrections. information entered using list provided by annette Ferreira.
--- NOTE | 2023-01-20 15:30 | HO.PM.IMCN ---
History of Present Illness Data of Consult Service Date: 01/20/23 Requesting physician: Wing Betancourt Primary Care Provider: Unknown Physician HPI Reason for consult: Medical management, diabetes 72-year-old male with history of insulin-dependent type 2 diabetes, BPH, orthostatic hypotension, history of intracranial hemorrhage with aphasia s/p craniotomy admitted to general surgery for management of incarcerated umbilical hernia s/p repair with mesh with consult placed hospitalist service for medical management of diabetes. He is resting comfortably with his son at bedside. He has no complaints at this time. Review of Systems Review of Systems: Yes all other systems are reviewed and are negative [facility] Medical History (Updated 01/20/23 @ 15:36 by SALAZAR Ross) Seizure Diverticulitis Intracranial hemorrhage Diabetes mellitus Aphasia Surgical History (Updated 01/20/23 @ 12:29 by Anisha Castellanos MD) Amputation toe H/O craniotomy Social History (Updated 01/20/23 @ 12:35 by Anisha Castellanos MD) Household Members: Family Housing: Apartment Do you presently have visiting nurse or other home services: No Patient Tobacco Use Status: Never used Tobacco Second Hand Smoke Exposure: No Meds Allergies Allergy/AdvReac Type Severity Reaction Status Date / Time No Known Allergies Allergy Verified 01/20/23 11:02 Active Medications: Current Medications Dextrose (Dextrose 50 % 25 Gm/50 Ml Syringe) 25 gm IVPUSH Q15M PRN; Protocol PRN Reason: per Hypoglycemia Standing Ord. Ergocalciferol (Ergocalciferol (Vitamin D2) 1,250 Mcg Capsule) 1,250 mcg PO QWEEK [facility] Finasteride (Finasteride 5 Mg Tablet) 5 mg PO DAILY [facility] Folic Acid (Folic Acid 1 Mg Tablet) 1 mg PO DAILY [facility] Glucose (Glucose Gel 15 Gm Gel..Gram.) 15 gm PO Q15M PRN; Protocol PRN Reason: per Hypoglycemia Standing Ord. Hydromorphone HCl (Hydromorphone Hcl 0.5 Mg/0.5 Ml Syringe) 0.5 mg IVPUSH Q3H PRN; Protocol PRN Reason: Pain, Severe (Pain Scale 7-10) Lactated Ringer's (Lr) 1,000 mls @ 100 mls/hr IVCONT .Q10H [facility] Last Admin: 01/20/23 11:32 Dose: 100 mls/hr Acetaminophen (Ofirmev) 1,000 mg in 100 mls @ 400 mls/hr IV Q6H [facility] Stop: 01/21/23 09:39 Insulin Human Lispro (Insulin Lispro 100 Unit/Ml 3 Ml Vial) 0 unit SUBCUT QIDACHS [facility]; Protocol Stop: 01/21/23 14:08 Levetiracetam (Levetiracetam 500 Mg Tablet) 500 mg PO BID [facility] Midodrine (Midodrine Hcl 5 Mg Tablet) 5 mg PO TID [facility] Mirtazapine (Mirtazapine 7.5 Mg Tablet) 7.5 mg PO BEDTIME [facility] Non-Formulary Medication (Calcium Carbonate-Vitamin D3) 1 tab PO DAILY [facility] Non-Formulary Medication (Ferrous Sulfate) 325 mg PO DAILY [facility] Ondansetron HCl (Ondansetron Hcl 4 Mg/2 Ml Vial) 4 mg IVPUSH QID PRN PRN Reason: Nausea Oxycodone HCl (Oxycodone Hcl Immed Release 5 Mg Tablet) 5 mg PO Q6H PRN PRN Reason: Pain, Moderate(Pain Scale 4-6) Sodium Chloride (0.9 % Sodium Chloride Flush 3 Ml Syringe) 3 ml IVFLUSH QSHIFT [facility] Tamsulosin HCl (Tamsulosin Hcl 0.4 Mg Capsule) 0.4 mg PO BEDTIME [facility] Home Medications Medication Instructions Recorded Confirmed Last Taken Type calcium carbonate 600 mg-vitamin 1 tab PO DAILY 01/20/23 01/20/23 Unknown History D3 5 mcg (200 unit) tablet ergocalciferol (vitamin D2) 1,250 1,250 mcg PO QWEEK 01/20/23 01/20/23 Unknown History mcg (50,000 unit) capsule ferrous sulfate 325 mg (65 mg 325 mg PO DAILY 01/20/23 01/20/23 Unknown History iron) tablet finasteride 5 mg tablet 5 mg PO DAILY 01/20/23 01/20/23 Unknown History folic acid 1 mg tablet 1 mg PO DAILY 01/20/23 01/20/23 Unknown History insulin glargine-yfgn 100 unit/mL 5 unit subcut BEDTIME 01/20/23 01/20/23 01/19/23 21:00 History (3 mL) subcutaneous pen insulin lispro 100 unit/mL See Protocol subcut QIDACHS 01/20/23 01/20/23 Unknown History subcutaneous solution levetiracetam 500 mg tablet 500 mg PO BID 01/20/23 01/20/23 Unknown History magnesium oxide 400 mg PO DAILY 01/20/23 01/20/23 Unknown History midodrine 5 mg tablet 5 mg PO TID 01/20/23 01/20/23 Unknown History mirtazapine 7.5 mg tablet 7.5 mg PO BEDTIME 01/20/23 01/20/23 Unknown History tamsulosin 0.4 mg capsule 0.4 mg PO BEDTIME 01/20/23 01/20/23 Unknown History Physical Exam Vital Signs and Narrative: Vital Signs: Last Vital Signs Temp 97.4 F 01/20/23 15:00 Pulse 57 01/20/23 15:00 Resp 13 01/20/23 15:00 BP 123/55 L 01/20/23 15:00 Pulse Ox 96 01/20/23 15:00 O2 Del Method Nasal Cannula wit h Capnography 01/20/23 15:00 O2 Flow Rate 2 01/20/23 15:00 BMI result Body Mass Index 27.9 Constitutional - Awake and Alert, No apparent distress Eyes - PERRLA, EOMI Cardiovascular - S1S2, RRR, No edema Respiratory - Normal lung expansion, Normal respiratory effort, No respiratory distress, CTA bilaterally Gastrointestinal - NT / ND; +BS; No rebound or guarding. post op bandage in place Extremities - no calf tenderness bilaterally, no swelling Skin - Warm/Dry. Well healing surgical wound on dorsal aspect of left foot s/p amputation L3-L4. [place] edges with dry scabbing centrally. No purulent drainage, eschar, slough. No erythema Neurological - Alert & oriented x3 Psychological - Appropriate affect Results Labs 01/20/23 09:42 01/20/23 09:42 Labs: Laboratory Results - last 24 hr 01/20/23 01/20/23 09:42 11:25 MCV 89.1 MCH 29.1 MCHC 32.7 RDW 14.4 Plt Count 219 MPV 10.7 Immature Gran % (Auto) 0.4 Neut % (Auto) 86.7 H Lymph % (Auto) 6.6 L Colbert % (Auto) 5.9 Eos % (Auto) 0.1 Baso % (Auto) 0.3 Lymph # (Auto) 0.8 L Colbert # (Auto) 0.7 Eos # (Auto) 0.0 Baso # (Auto) 0.0 Abs Immat Gran (auto) 0.05 H Absolute Neuts (auto) 9.9 H Absolute Nucleated RBC 0.000 Nucleated RBC % (auto) 0.0 PT 11.6 INR 1.0 Anion Gap 12 Estim Creat Clear Calc 58.5 Estimated GFR > 60 POC Glucose 172 H Random Glucose 216 H Lactic Acid 1.0 Calcium 9.5 Magnesium 1.9 Total Bilirubin 0.4 Direct Bilirubin 0.2 AST 11 ALT 7 Alkaline Phosphatase 68 Total Protein 7.1 Albumin 3.8 Lipase < 4 L Assessment and Plan (1) Irreducible umbilical hernia: Status: Acute Plan 72-year-old male with history of insulin-dependent type 2 diabetes, unspecified seizure disorder, BPH, orthostatic hypotension, history of intracranial hemorrhage with aphasia s/p craniotomy admitted to general surgery for management of incarcerated umbilical hernia s/p repair with mesh with consult placed hospitalist service for medical management of diabetes. 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 Signing off at this time. Please do not hesitate to call for further questions or for any acute medical issues
[2023-01-20 16:17] LABS: Glucose, Whole Blood 137 mg/dL (60-115)
[2023-01-20] MEDS: 0.9 % Sodium Chloride Flush 3 ML SYRINGE IVFLUSH (16:43)
[2023-01-20] MEDS: levETIRAcetam 500 MG TABLET PO (20:54)
[2023-01-20] MEDS: Tamsulosin HCL 0.4 MG CAPSULE PO (20:54)
[2023-01-20] MEDS: Mirtazapine 7.5 MG TABLET PO (20:54)
[2023-01-20] MEDS: Acetaminophen 1,000 MG/100 ML PIGGYBACK 400 MG IV (20:55)
[2023-01-20 21:10] LABS: Glucose, Whole Blood 194 mg/dL (60-115)
[2023-01-20] MEDS: Insulin Glargine,Hum.rec.anlog 100 UNIT/ML 10 ML VIAL SUBCUT (21:10)
[2023-01-20] MEDS: Insulin Lispro 100 UNIT/ML 3 ML VIAL SUBCUT (21:11)
[2023-01-21] MEDS: Acetaminophen 1,000 MG/100 ML PIGGYBACK 400 MG IV ×3 (03:15→14:21)
[2023-01-21 03:23] VITALS: BP 122/59; PULSE 57; RESP 18; TEMP 37.2; O2SAT 99
[2023-01-21 07:31] VITALS: BP 122/60; PULSE 58; RESP 20; TEMP 36.5; O2SAT 97
[2023-01-21 07:56] LABS: Glucose, Whole Blood 114 mg/dL (60-115)
--- NOTE | 2023-01-21 08:24 | MHC.CM.PN ---
CM met with Patient at bedside and Patient answered as many questions as he could (Aphasia). Patient lives in an apartment with his Son/ABIDA/Jhon and he uses a cane to assist with mobility. Patient states that he is active with [facility] but molina cannot recall the name of the agency, nor who his PCP is (CM will attempt again to reach Son/Jhon). Home/ resume services is the goal and CM has initiated and will follow for dc planning.
--- NOTE | 2023-01-21 09:16 | MHC.CM.PN ---
Patient is active with [facility].
--- NOTE | 2023-01-21 09:37 | MHC.CM.PN ---
PCP is Dr. Kennedy Ramirez.
[2023-01-21] MEDS: Finasteride 5 MG TABLET PO (09:49)
[2023-01-21] MEDS: levETIRAcetam 500 MG TABLET PO ×2 (09:49→19:55)
[2023-01-21] MEDS: Lactated Ringers 1,000 ML 100 ML IVCONT ×2 (09:49→20:07)
[2023-01-21] MEDS: Midodrine HCl 5 MG TABLET PO ×3 (09:49→18:18)
[2023-01-21] MEDS: Ferrous Sulfate 324 MG TABLET.DR PO (09:49)
[2023-01-21] MEDS: Folic Acid 1 MG TABLET PO (09:49)
[2023-01-21] MEDS: Calcium + Vitamin D 250 MG TABLET 500 MG PO (09:49)
[2023-01-21 11:12] VITALS: BP 113/56; PULSE 61; RESP 20; TEMP 36.6; O2SAT 99
[2023-01-21 11:39] LABS: Glucose, Whole Blood 136 mg/dL (60-115)
--- NOTE | 2023-01-21 11:47 | P.PNGS_ITS ---
Subjective Subjective Date of Service: 01/21/23 Patient reports: feels better, tolerating a regular diet and bowel movement Physical Exam 2 Vital Signs: Vital Signs: Last Vital Signs Temp 97.8 F 01/21/23 11:12 Pulse 61 01/21/23 11:12 Resp 20 01/21/23 11:12 BP 113/56 L 01/21/23 11:12 Pulse Ox 99 01/21/23 11:12 O2 Del Method Room Air 01/21/23 11:12 O2 Flow Rate 3 01/21/23 03:23 BMI result Body Mass Index 27.9 Const: General: comfortable Nutritional Appearance: well nourished O rientation/consciousness: patient oriented x3 Resp: Effort & Inspection: normal respiratory effort GI: Inspection: Yes normal to inspection Palpation (GI): Soft to palpation, Tenderness to palpation present (GI) periumbilically and no hernias P ercussion: Yes normal to percussion Neuro: General: patient oriented x3 Extrem: General: No edema Objective Data Active Medications Calcium Carbonate/Cholecalciferol (Calcium + Vitamin D 250 Mg Tablet) 500 mg PO DAILY [facility] Last Admin: 01/21/23 09:49 Dose: 500 mg Documented By: HALIE Dextrose (Dextrose 50 % 25 Gm/50 Ml Syringe) 25 gm IVPUSH Q15M PRN; Protocol PRN Reason: per Hypoglycemia Standing Ord. Ergocalciferol (Ergocalciferol (Vitamin D2) 1,250 Mcg Capsule) 1,250 mcg PO Tu@0900 [facility] Ferrous Sulfate (Ferrous Sulfate 324 Mg Tablet.) 324 mg PO DAILY [facility] Last Admin: 01/21/23 09:49 Dose: 324 mg Documented By: HALIE Finasteride (Finasteride 5 Mg Tablet) 5 mg PO DAILY [facility] Last Admin: 01/21/23 09:49 Dose: 5 mg Documented By: HALIE Folic Acid (Folic Acid 1 Mg Tablet) 1 mg PO DAILY [facility] Last Admin: 01/21/23 09:49 Dose: 1 mg Documented By: HALIE Glucose (Glucose Gel 15 Gm Gel..Gram.) 15 gm PO Q15M PRN; Protocol PRN Reason: per Hypoglycemia Standing Ord. Hydromorphone HCl (Hydromorphone Hcl 0.5 Mg/0.5 Ml Syringe) 0.5 mg IVPUSH Q3H PRN; Protocol PRN Reason: Pain, Severe (Pain Scale 7-10) Lactated Ringer's (Lr) 1,000 mls @ 100 mls/hr IVCONT .Q10H [facility] Last Admin: 01/21/23 09:49 Dose: 100 mls/hr Documented By: HALIE Acetaminophen (Ofirmev) 1,000 mg in 100 mls @ 400 mls/hr IV Q6H [facility] Stop: 01/21/23 13:14 Last Infusion: 01/21/23 10:37 Dose: Infused Documented By: HALIE Insulin Glargine (Insulin Glargine,Hum.Rec.Anlog 100 Unit/Ml 10 Ml Vial) 4 unit SUBCUT BEDTIME [facility] Last Admin: 01/20/23 21:10 Dose: 4 unit Documented By: CASSIE Insulin Human Lispro (Insulin Lispro 100 Unit/Ml 3 Ml Vial) 0 unit SUBCUT QIDACHS [facility]; Protocol Stop: 01/21/23 14:08 Last Admin: 01/21/23 08:22 Dose: Not Given Documented By: HALIE Non-Admin Reason: No Insulin Coverage Levetiracetam (Levetiracetam 500 Mg Tablet) 500 mg PO BID [facility] Last Admin: 01/21/23 09:49 Dose: 500 mg Documented By: HALIE Midodrine (Midodrine Hcl 5 Mg Tablet) 5 mg PO TIDWM [facility] Last Admin: 01/21/23 09:49 Dose: 5 mg Documented By: HALIE Mirtazapine (Mirtazapine 7.5 Mg Tablet) 7.5 mg PO BEDTIME [facility] Last Admin: 01/20/23 20:54 Dose: 7.5 mg Documented By: CASSIE Ondansetron HCl (Ondansetron Hcl 4 Mg/2 Ml Vial) 4 mg IVPUSH QID PRN PRN Reason: Nausea Oxycodone HCl (Oxycodone Hcl Immed Release 5 Mg Tablet) 5 mg PO Q6H PRN PRN Reason: Pain, Moderate(Pain Scale 4-6) Sodium Chloride (0.9 % Sodium Chloride Flush 3 Ml Syringe) 3 ml IVFLUSH QSHIFT [facility] Last Admin: 01/21/23 08:22 Dose: Not Given Documented By: HALIE Non-Admin Reason: IV Running Tamsulosin HCl (Tamsulosin Hcl 0.4 Mg Capsule) 0.4 mg PO BEDTIME [facility] Last Admin: 01/20/23 20:54 Dose: 0.4 mg Documented By: CASSIE Labs 01/20/23 09:42 01/20/23 09:42 Labs: Laboratory Results - last 24 hr 01/20/23 01/20/23 01/21/23 16:03 20:59 07:33 POC Glucose 137 H 194 H 114 01/21/23 11:11 POC Glucose 136 H Procedures Date of Service Date of Service: 01/21/23 Progress Note: A&P Assessment and plan (1) Irreducible umbilical hernia: Status: Acute Plan POD #1 s/p repair of incarcerated umbilical hernia. Patient remains hemodynamically stable and wounds are clean and intact. He is tolerating regular diet. Still using nasal O2 3L. Recommended OOB and ambulation, Incentive spirometry. Discharge planning. Appreciate Hospitalist input. Time Spent With Patient Time: Total time managing care of this patient today ____ minutes. Quality Stroke Does the patient have a stroke diagnosis?: No VTE Prior VTE?: No VTE Risk Level:: Surgical - moderate VTE Device Contraindication: N/A - Device Ordered VTE Drug Contraindication: Treatment Not Indicated
--- NOTE | 2023-01-21 15:21 | HO.POSTANES ---
Post Anesthesia Evaluation Post Anesthesia Evaluation Date of Service: 01/21/23 Vital Signs: Vital Signs Temp Pulse Resp BP Pulse Ox O2 Del Method O2 Flow Rate 01/21/23 11:12 97.8 F 61 20 113/56 L 99 Room Air 01/21/23 07:31 97.7 F 58 20 122/60 97 Room Air 01/21/23 03:23 98.9 F 57 18 122/59 L 99 Nasal Cannula 3 Anesthesia: General Mental Status: Awake Pain Control: Satisfactory Nausea/Vomiting: None Hydration: Adequate Anesthesia-Related Issues: No Anes. Related Issues
[2023-01-21 15:34] VITALS: BP 147/70; PULSE 54; RESP 16; TEMP 36.3; O2SAT 100
[2023-01-21 16:31] LABS: Glucose, Whole Blood 103 mg/dL (60-115)
[2023-01-21 18:40] VITALS: BP 140/70; PULSE 69; RESP 16; TEMP 36.4; O2SAT 95
[2023-01-21] MEDS: Tamsulosin HCL 0.4 MG CAPSULE PO (19:56)
[2023-01-21] MEDS: Mirtazapine 7.5 MG TABLET PO (19:56)
[2023-01-21 20:36] LABS: Glucose, Whole Blood 129 mg/dL (60-115)
[2023-01-21] MEDS: Insulin Glargine,Hum.rec.anlog 100 UNIT/ML 10 ML VIAL SUBCUT (20:56)
[2023-01-21 23:16] VITALS: BP 141/65; PULSE 55; RESP 17; TEMP 36.3; O2SAT 98
[2023-01-22 03:51] VITALS: BP 131/68; PULSE 61; RESP 17; TEMP 36.1; O2SAT 97
[2023-01-22 07:13] VITALS: BP 132/77; PULSE 67; RESP 18; TEMP 36.3; O2SAT 95
--- NOTE | 2023-01-22 07:40 | P.DS_ITS ---
DS: Providers Provider Date of Service: 01/22/23 Date of admission: 01/20/23 10:10 Date of discharge: 01/22/23 Primary care physician: Unknown Physician Admitting clinician: Wing Betancourt Consults: 01/20/23 15:25 Consult to Hospitalist Routine Comment: Consulting Provider: Hospitalist Reason For Exam: diabetes management Discharging clinician: Wing Betancourt DS: Diagnosis Discharge Diagnosis (1) Irreducible umbilical hernia: Status: Acute DS: Summary Hospital Course Hospital Course: 72-year-old male patient presenting with a known history of an umbilical hernia now presenting with a incarcerated umbilical hernia with associated nausea and vomiting. He presented to the emergency department on 01/20/2023 and was found to have mild distention of his abdomen and an obvious umbilical hernia. The overlying skin was red And the hernia non reducible with light pressure. His past medical history significant for Diabetes and craniotomy for intracerebral bleed. He also is status post toe amputation. He was subsequently admitted to the general surgery service and arrangements made for repair of this incarcer ated umbilical hernia. Operative findings revealed a loop of small bowel within the hernia sac which was incarcerated and strangulated. Hernia was reduced and the bowel observed and found to be viable. No resection was required. Hernia was then repaired using a Medium Ventralex mesh. He tolerated the procedure well was observed for 48 hours. He was able to tolerate a regular diet on postoperative day 1 and reported a bowel movement as well. His wounds remain clean, dry and intact without redness or discharge. On the 2nd hospital day he again remained comfortable, tolerating regular diet without nausea or vomiting. His wounds were clean, dry intact. The patient is to be discharged to home today with follow-up in the office in approximately 1 week. He should avoid lifting greater than 10 lb for the next month. He was encouraged to ambulate and perform deep breathing exercises. A prescription for oxycodone was sent to his pharmacy. He should call for increased abdominal pain, nausea, vomiting, or difficulty with his bowels. He should also call for any problems with his incision. This was discussed with his son this morning and he agrees with the plan. Time spent discussing smoking cessation with patient: 3 to 10 minutes Status at Discharge Overall status at discharge: patient is back to baseline Time Attestation Discharge coordination time: Less than 30 minutes Quality: Safe Use of Opioids Does Pt have an Active Cancer Diagnosis on the Problem List?: No Quality: Stroke Does the patient have a stroke diagnosis?: No Physical Exam Vital Signs: Vital Signs: Last Vital Signs Temp 97.4 F 01/22/23 07:13 Pulse 67 01/22/23 07:13 Resp 18 01/22/23 07:13 BP 132/77 01/22/23 07:13 Pulse Ox 95 01/22/23 07:13 O2 Del Method Nasal Cannula 01/22/23 07:13 O2 Flow Rate 2 01/22/23 07:13 BMI result Body Mass Index 27.9 Const: General: comfortable Nutritional Appearance: well nourished Orientation/consciousness: patient oriented x3 Resp: Other: Breathing comfortably on room air, no respiratory distress Effort & Inspection: normal respiratory effort GI: Inspection: Yes normal to inspection Palpation (GI): Soft to palpation, Tenderness to palpation present (GI) periumbilically and no hernias Percussion: Yes normal to percussion Neuro: General: patient oriented x3 Extrem: General: No edema DS: Data Data Completed and Pending Pending studies at discharge: Pending at discharge 01/20/23 13:55 Surgical [PTH] Routine Labs on day of discharge: Laboratory Results - last 24 hr 01/21/23 01/21/23 01/21/23 07:33 11:11 16:28 POC Glucose 114 136 H 103 01/21/23 20:29 POC Glucose 129 H Discharge Plan Discharge Anticipated Discharge Date/Time: 01/22/23 07:47 Patient Disposition: Home, Self-Care Discharge Diagnosis: Incarcerated umbilical hernia Referrals: Wing Betancourt MD [Physician] - 1 Week PhysicianGabriel [Primary Care Provider] - 1 Week Discharge Medications: New oxycodone 5 mg tablet 5 mg PO Q6H PRN (Reason: pain (scale score 7-10)) 10 Days Qty: 15 0RF Rx Instructions: Partial Fill upon patient request. Continued levetiracetam 500 mg tablet 500 mg PO BID midodrine 5 mg tablet 5 mg PO TID tamsulosin 0.4 mg capsule 0.4 mg PO BEDTIME ferrous sulfate 325 mg (65 mg iron) tablet 325 mg PO DAILY folic acid 1 mg tablet 1 mg PO DAILY ergocalciferol (vitamin D2) 1,250 mcg (50,000 unit) capsule 1,250 mcg PO QWEEK finasteride 5 mg tablet 5 mg PO DAILY mirtazapine 7.5 mg tablet 7.5 mg PO BEDTIME magnesium oxide 400 mg magnesium Tablet 400 mg PO DAILY insulin glargine-yfgn 100 unit/mL (3 mL) insulin pen 5 unit subcut BEDTIME calcium carbonate-vitamin D3 600 mg-5 mcg (200 unit) tablet 1 tab PO DAILY insulin lispro 100 unit/mL solution See Protocol subcut [facility] Protocol: Insulin Correction Scale Less than or equal to 110 ---- Give (units): 0 111 to 150 Give (units): 0 151 to 200 Give (units): 2 201 to 250 Give (units): 4 251 to 300 Give (units): 6 301 to 350 Give (units): 8 Greater than 350 Give (units): 10 Call MD if Blood Glucose > : 350 Discharge Orders: Discharge Order (Routine); Ordered 01/22/23 Ordered By: Wing Betancourt Diet: Diabetic diet Activity on Discharge: No heavy lifting Stand Alone Forms: Patient Portal Discharge page Activity Restrictions/Additional Instructions: No lifting > 10 pounds for 1 month No driving for one week Ice to the incision x 24 hours After 24 hours, use warm compress or heating pad on low as needed Take Tylenol Extra-strength 1-2 tabs every 6 hours for the first day, then prn Oxycodone every 6-8 hours as needed for pain Colace 100 mg every day as needed for constipation Remove dressing in 3 days Follow up in office in one week. Care Plan Goals: Return to normal activity Health Concerns: incarcerated umbilical hernia Plan of Treatment: repair of umbilical hernia with mesh on 01/20/2023 Assessment: incarcerated umbilical hernia, status post repair with mesh 01/20/2023
[2023-01-22 07:49] LABS: Glucose, Whole Blood 69 mg/dL (60-115)
--- NOTE | 2023-01-22 08:22 | MHC.CM.PN ---
PT TO DC HOME TODAY, NO NEW SERVICES ORDERED [facility] NOTIFIED VIA [facility] TO TRANSPORT
[2023-01-22] MEDS: oxyCODONE HCl Immed Release 5 MG TABLET PO (08:45)
[2023-01-22] MEDS: Finasteride 5 MG TABLET PO (08:46)
[2023-01-22] MEDS: Folic Acid 1 MG TABLET PO (08:46)
[2023-01-22] MEDS: levETIRAcetam 500 MG TABLET PO (08:46)
[2023-01-22] MEDS: Ferrous Sulfate 324 MG TABLET.DR PO (08:46)
[2023-01-22] MEDS: Calcium + Vitamin D 250 MG TABLET 500 MG PO (08:46)
[2023-01-22] MEDS: Midodrine HCl 5 MG TABLET PO (08:46)
[2023-01-22 09:05] VITALS: O2SAT 95
[2023-01-22 11:25] LABS: Glucose, Whole Blood 149 mg/dL (60-115)
== END 2023-01-22 11:54 | disposition home health service (06) | DRG 228 ==
LOC: HO.ED 09:57 → HO.SSS 10:02 → HO.IMC 14:39 → HO.SSS 01-21 08:32 → HO.IMC 01-21 08:32 → HO.S3 01-21 18:08
PROVIDERS: Physician Assistant; Admitting Provider Surgery; Emergency Provider Emergency Medicine Emergency Medical Services; PCP Internal Medicine; Visit Provider Surgery
PROC: 0WUF0JZ Supplement Abdominal Wall with Synthetic Substitute, Open Approach (ICD-10-PCS; CPT 49616; principal; 2023-01-20 12:00)
DX: K42.0 Umbilical hernia with obstruction, without gangrene (principal); I69.220 Aphasia following other nontraumatic intracranial hemorrhage; I95.1 Orthostatic hypotension; N40.0 Benign prostatic hyperplasia without lower urinary tract symptoms; Z79.4 Long term (current) use of insulin; Z79.899 Other long term (current) drug therapy
CPT/HCPCS: 49616; 36415; 80048; 80076; 82947; 83605; 83690; 83735; 85025; 85610; 88302; 99024; 99218; 99285; C1781; C9088; J0131; J0665; J0690; J1100; J2250; J2371; J2405; J2704; J3010; J7120

== ENCOUNTER → 2023-01-20 09:50 | Outpatient (BNV) | payer BC, SELFPAY | PROVIDERS: Emergency Provider Emergency Medicine Emergency Medical Services; Visit Provider Physician Assistant | DX: K42.0 Umbilical hernia with obstruction, without gangrene (principal) | CPT/HCPCS: 99222 ==

== ENCOUNTER → 2023-01-20 09:50 | Outpatient (BNV) | payer BC, SELFPAY | PROVIDERS: Emergency Provider Emergency Medicine Emergency Medical Services; Visit Provider Surgery | DX: K42.0 Umbilical hernia with obstruction, without gangrene (principal) | CPT/HCPCS: 49594; 99222; 99232; 99238 ==

== ENCOUNTER 2023-01-29 14:57 | Outpatient (AMB) | payer BC, SELFPAY ==
--- NOTE | 2023-01-29 15:00 | MHC.OFFVIS ---
Intake Vital Signs 01/29/23 15:05 Weight 179 lb BP 127/56 L Blood Pressure Location Lt brachial Position Sitting Pulse 81 Intake Visit Reasons: s/p repair of incarcerated umbilical hernia w/mesh Intake Note: Patient is seen in office for post op assessment post umbilical hernia repair. Pt c/o: reports no complaints at this time. 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 Required: No Accompanied by: Other Relationship Allergies No Known Allergies Allergy (Verified 01/29/23 15:06) Medication List - Last Reconciled 01/29/23 by Wing Betancourt MD calcium carbonate-vitamin D3 600 mg-5 mcg (200 unit) 1 tab PO DAILY ergocalciferol (vitamin D2) 1,250 mcg PO QWEEK ferrous sulfate 325 mg PO DAILY finasteride 5 mg PO DAILY folic acid 1 mg PO DAILY insulin glargine-yfgn 5 units subcut BEDTIME insulin lispro See Protocol sliding scale doses subcut QIDACHS levetiracetam 500 mg PO BID magnesium oxide 400 mg PO DAILY midodrine 5 mg PO TID mirtazapine 7.5 mg PO BEDTIME oxycodone 5 mg PO Q6H PRN 10 days tamsulosin 0.4 mg PO BEDTIME HPI HPI Comments History of Present Illness Details 72-year-old male patient returning 1 week following repair of an incarcerated umbilical hernia. He feels much improved and denies any significant abdominal symptoms at this time. He is eating well and denies any nausea, vomiting, diarrhea or constipation. [facility] Medical History (Updated 01/24/23 @ 00:04 by Toya Putnam) Irreducible umbilical hernia Seizure Diverticulitis Intracranial hemorrhage Diabetes mellitus Aphasia Surgical History H/O umbilical hernia repair (01/20/23) Amputation toe H/O craniotomy Social History Household Members: Family Housing: Apartment Do you presently have visiting nurse or other home services: No Patient Tobacco Use Status: Former Tobacco user Quit Date: Insignificant use. Only very briefly in the 70s Second Hand Smoke Exposure: No service: Yes Physical Exam Vital Signs: Last Vital Signs Pulse 81 01/29/23 15:05 BP 127/56 L 01/29/23 15:05 Const General: no acute distress Resp Effort & Inspection: normal respiratory effort GI Other: Well-healed umbilical incision without redness or discharge. There is an underlying healing ridge with no changes noted with Valsalva maneuvers to indicate a recurrent hernia. Inspection: Yes normal to inspection Palpation (GI): Soft to palpation, nontender and no guarding Assessment & Plan Assessment & Plan (1) Irreducible umbilical hernia: Code(s): K42.0 - Umbilical hernia with obstruction, without gangrene Plan 72-year-old male patient returning following repair of an incarcerated umbilical hernia. He tolerated the procedure well his wounds are healing nicely. He should continue to avoid lifting greater than 10 lb and should return approximately 1 month for wound examination. Coding Level of Care Code Global (68825) Diagnoses Irreducible umbilical hernia K42.0
[2023-01-29 15:05] VITALS: BP 127/56; PULSE 81
== END 2023-01-29 15:38 | disposition home or self-care (01) ==
PROVIDERS: PCP Internal Medicine; Visit Provider Surgery
DX: K42.0 Umbilical hernia with obstruction, without gangrene (principal)
CPT/HCPCS: 99212

== ENCOUNTER → 2023-01-29 14:57 | Outpatient (BNVA) | payer BC, SELFPAY | PROVIDERS: PCP Internal Medicine; Visit Provider Surgery ==

== ENCOUNTER 2023-02-11 17:34 | Emergency (ER) | payer BC, SELFPAY ==
--- NOTE | ~2023-02-11 | CT_ITS ---
EXAMINATION: CT head/brain wo IV con CLINICAL INFORMATION: Reason for Exam head injury COMPARISON: None. TECHNIQUE: Contiguous axial imaging was performed from the skull base to vertex without intravenous contrast. Sagittal and coronal reformatted images were obtained. This CT examination was performed using dose optimization techniques as appropriate, variously including the following: * Automated exposure control * Adjustment of mA and/or kV according to patient size (this includes techniques or standardized protocols for targeted exams where dose is matched to indication/reason for exam; i.e. extremities or head) Use of iterative reconstruction technique DLP: 680.22 mGy-cm FINDINGS: Postsurgical changes from left parietal craniotomy. Parenchymal hypodensity in underlying left parietal lobe, presumably reflecting a combination of left greater than right anterior inferior frontal lobes, likely posttraumatic. No acute soft tissue or osseous abnormality. Scattered paranasal sinus inflammatory disease. The right maxillary sinus is completely opacified and atelectatic. There is no evidence of acute intracranial hemorrhage or territorial infarction. No abnormal mass effect or midline shift is seen. No extra-axial fluid collections are identified. No hydrocephalus. Proportional prominence of the ventricles and sulcal spaces is consistent with mild volume loss. Patchy periventricular and deep white matter hypoattenuation is consistent with mild small vessel ischemic changes. CT/CT head/brain wo IV con IMPRESSION: 1. No acute intracranial abnormality including hemorrhage, mass effect, hydrocephalus, or acute territorial edematous infarction. 2. Postsurgical changes from left parietal craniotomy. Underlying left parietal lobe parenchymal hypodensity presumably reflects a combination of encephalomalacia and gliosis. Correlate with clinical/surgical history. 3. Encephalomalacia in the left greater than right anterior inferior frontal lobes likely reflects sequela of prior trauma. 4. Scattered paranasal sinus inflammatory disease. The right maxillary sinus is completely opacified and atelectatic.
[2023-02-11 17:41] VITALS: BP 130/69; PULSE 75; RESP 16; TEMP 36.7; O2SAT 98; BMI 24.5
--- NOTE | 2023-02-11 19:00 | ED_ITS ---
HPI - Fall General Chief Complaint: Fall Stated Complaint: fell and hit head, small cut Time Seen by Provider: 02/11/23 19:03 Source: patient, family, RN notes reviewed and old records reviewed Mode of arrival: ambulatory History of Present Illness HPI Narrative: 72-year-old male with past medical history of seizure, umbilical hernia, diverticulitis, ICH, diabetes, aphasia, presenting to the ED complaining of head injury s/p mechanical trip and fall around 17:10 while walking into house/ on porch. Reports foot got caught on the lip of stair, fell forward hitting right side of head, denies LOC or taking anticoagulation. Denies injury to other area, neck/ back pain, symptoms prior to fall, lightheadedness/ dizziness nausea/ vomiting, weakness. MD complaint: fall Related Data Home Medications Medication Instructions Recorded Confirmed calcium carbonate 600 mg-vitamin 1 tab PO DAILY 01/20/23 01/29/23 D3 5 mcg (200 unit) tablet ergocalciferol (vitamin D2) 1,250 1,250 mcg PO QWEEK 01/20/23 01/29/23 mcg (50,000 unit) capsule ferrous sulfate 325 mg (65 mg 325 mg PO DAILY 01/20/23 01/29/23 iron) tablet finasteride 5 mg tablet 5 mg PO DAILY 01/20/23 01/29/23 folic acid 1 mg tablet 1 mg PO DAILY 01/20/23 01/29/23 insulin glargine-yfgn 100 unit/mL 5 unit subcut BEDTIME 01/20/23 01/29/23 (3 mL) subcutaneous pen insulin lispro 100 unit/mL See Protocol subcut QIDACHS 01/20/23 01/29/23 subcutaneous solution levetiracetam 500 mg tablet 500 mg PO BID 01/20/23 01/29/23 magnesium oxide 400 mg PO DAILY 01/20/23 01/29/23 midodrine 5 mg tablet 5 mg PO TID 01/20/23 01/29/23 mirtazapine 7.5 mg tablet 7.5 mg PO BEDTIME 01/20/23 01/29/23 tamsulosin 0.4 mg capsule 0.4 mg PO BEDTIME 01/20/23 01/29/23 Previous Rx's Medication Instructions Recorded oxycodone 5 mg tablet 5 mg PO Q6H PRN pain (scale score 01/22/23 7-10) 10 days #15 tabs Allergies Allergy/AdvReac Type Severity Reaction Status Date / Time No Known Allergies Allergy Verified 01/29/23 15:06 Review of Systems Review of Systems: Constitutional: No Fever, No Chills, No Fatigue, No Malaise ENT/Mouth: No Ear Pain, No Nasal Congestion,No sore throat, No Rhinorrhea, No Swallowing Difficulty Eyes: No Eye Pain, No Swelling, No Redness, No Vision Changes Cardiovascular: No Chest Pain, No SOB Respiratory: No Cough, No Sputum, No Dyspnea Gastrointestinal: No Nausea, No Vomiting, No Diarrhea, No Constipation, No Abdominal pain Musculoskeletal: No joint pain, No Myalgias, No Joint Swelling Skin: No Skin Lesions, No rash Neuro: No Weakness, No Numbness, No Paresthesias, No Loss of Consciousness, No Dizziness, +Headache/injury Yes all other systems are reviewed and are negative Constitutional: Constitutional: Reports as per HPI Neurologic: Denies Abnormal speech present [facility] Past Medical History Attestation statement: The following information was validated with the patient. Source: old records reviewed Medical History Irreducible umbilical hernia Seizure Diverticulitis Intracranial hemorrhage Diabetes mellitus Aphasia Surgical History H/O umbilical hernia repair (01/20/23) Amputation toe H/O craniotomy Social History Social History Household Members: Family Housing: Apartment Do you presently have visiting nurse or other home services: No Patient Tobacco Use Status: Former Tobacco user Quit Date: Insignificant use. Only very briefly in the 70s Second Hand Smoke Exposure: No service: Yes Physical Exam Vital Signs: Vital Signs: Last Vital Signs Temp 98.0 F 02/11/23 17:41 Pulse 75 02/11/23 17:41 Resp 16 02/11/23 17:41 BP 130/69 02/11/23 17:41 Pulse Ox 98 02/11/23 17:41 O2 Del Method Room Air 02/11/23 17:41 BMI result Body Mass Index 24.5 Const: General: cooperative, healthy appearing and no acute distress Orientation/consciousness: patient oriented x3 Limitations: no limitations HEENT: Other: + Superficial abrasion with mild swelli ng noted to right temporal region. Nontender. No palpable step-off. No active bleeding Head: No hematoma Ears: hearing grossly normal bilaterally General nose exam: Normal external nose present Face and sinus: Yes normal facial exam Mouth: Normal oral and palatal mucosa present Throat: Yes posterior oropharynx normal and Yes uvula midline Eyes: General: appearance normal, both eyes and all related structures Pupils: Equal, round and reactive pupils present EOM: EOMs intact bilaterally Neck: Neck: Yes normal visual inspection and Yes no meningeal signs Resp: Effort & Inspection: normal respiratory effort and no respiratory distress Auscultation: clear to auscultation bilaterally, no rales and no wheezes Cardio: Rate: regular rate Heart sounds: S1 normal heart sound present and S2 normal heart sound present GI: Inspection: Yes normal to inspection Palpation (GI): Soft to palpation, nontender, no guarding and not rigid : General: Yes no CVA tenderness Back/Spine/Pelvis: Other: No midline cervical/thoracic/lumbar spinous tenderness/step-off or deformity Back: no CVA tenderness Skin: Rashes: no rashes Wounds: no wounds Neuro: General: patient oriented x3, gait normal, tone normal, moves all extremities, no meningeal signs, no focal motor deficits and CN's II-XI intact bilaterally Cranial nerves: Yes CN's II-XII intact bilaterally and Yes Equal, round and reactive pupils present Speech: No Abnormal speech present Gait exam (Neuro): Normal gait present Motor exam (neuro): 5/5 motor strength present throughout Extrem: General: Yes normal to inspection Course Course Course Narrative: 1899--CT head/brain wo IV con IMPRESSION: 1. No acute intracranial abnormality including hemorrhage, mass effect, hydrocephalus, or acute territorial edematous infarction. 2. Postsurgical changes from left parietal craniotomy. Underlying left parietal lobe parenchymal hypodensity presumably reflects a combination of encephalomalacia and gliosis. Correlate with clinical/surgical history. 3. Encephalomalacia in the left greater than right anterior inferior frontal lobes likely reflects sequela of prior trauma. 4. Scattered paranasal sinus inflammatory disease. The right maxillary sinus is completely opacified and atelectatic. Results discussed with patient including worrisome signs and symptoms and strict return precautions, and when to return to the emergency department. They verbalized understanding and feel safe for discharge at this time. Medical Decision Making Medical Decision Making MDM Narrative: 72-year-old male with past medical history of seizure, umbilical hernia, diverticulitis, ICH, diabetes, aphasia, presenting to the ED complaining of head injury s/p mechanical trip and fall around 17:10 while walking into house/ on porch. On exam VSS, NAD, nontoxic appearing, PE as above. No focal neuro deficits. no midline spinous ttp. Concern for ICH vs Fx vs concussion. lower concern for ACS, metabolic /infectious etiology plan: Head CT Please refer to course for remaining clinical decision making, interpretation of labs/imaging results, and discussions with consultants and/or family members. Differential Diagnosis Differential Diagnoses: The differential diagnosis associated with the presentation includes As above Admission/Observation Consideration of admission/observation: Escalation of care including admission/observation considered Lab Data [facility] Lab Attestation statement: I reviewed the patient's lab results. Independent Interpretation I performed an independent interpretation of an: CT Scan Radiology Impression Discussion of test interpretation with radiology: I have reviewed the radiologist's reading. External Record Review External record reviewed: Inpatient record, Office record, Outpatient record, Prior outpatient labs, Prior outpatient radiology, Primary care record and Outside ED record Tests considered The following testing was considered but not selected: As above Prescription Management I considered prescription management with: Pain Medication Chronic Conditions Patient?s care impacted by: Other Discharge Plan Discharge Clinical Impression: Head injury, Fall Patient Disposition: Home, Self-Care Instructions: Head Injury (ED), Fall Prevention (ED) Additional Instructions: your CAT scan does not show any acute findings. Please apply bacitracin or Neosporin to your cut Follow up with your doctor is normal for you to experience some mild headaches, nausea and lightheadedness after a head injury however if this is persistent or worsening return to the ED If you develop constant or worsening headaches, persistent nausea/ vomiting, weakness return to the ED Prescriptions: No Action levetiracetam 500 mg tablet 500 mg PO BID midodrine 5 mg tablet 5 mg PO TID tamsulosin 0.4 mg capsule 0.4 mg PO BEDTIME ferrous sulfate 325 mg (65 mg iron) tablet 325 mg PO DAILY folic acid 1 mg tablet 1 mg PO DAILY ergocalciferol (vitamin D2) 1,250 mcg (50,000 unit) capsule 1,250 mcg PO QWEEK finasteride 5 mg tablet 5 mg PO DAILY mirtazapine 7.5 mg tablet 7.5 mg PO BEDTIME magnesium oxide 400 mg magnesium Tablet 400 mg PO DAILY insulin glargine-yfgn 100 unit/mL (3 mL) insulin pen 5 unit subcut BEDTIME calcium carbonate-vitamin D3 600 mg-5 mcg (200 unit) tablet 1 tab PO DAILY insulin lispro 100 unit/mL solution See Protocol subcut QIDACHS Protocol: Insulin Correction Scale Less than or equal to 110 ---- Give (units): 0 111 to 150 Give (units): 0 151 to 200 Give (units): 2 201 to 250 Give (units): 4 251 to 300 Give (units): 6 301 to 350 Give (units): 8 Greater than 350 Give (units): 10 Call MD if Blood Glucose > : 350 oxycodone 5 mg tablet 5 mg PO Q6H PRN (Reason: pain (scale score 7-10)) 10 Days Qty: 15 0RF Rx Instructions: Partial Fill upon patient request. Referrals: Kennedy Ramirez MD [Primary Care Provider] - 5 days
== END 2023-02-11 19:08 | disposition home or self-care (01) ==
PROVIDERS: Emergency Provider Emergency Medicine; PCP Internal Medicine
DX: T14.90XA Injury, unspecified, initial encounter (principal); E11.9 Type 2 diabetes mellitus without complications; W01.0XXA Fall on same level from slipping, tripping and stumbling without subsequent striking against object, initial encounter; Y93.9 Activity, unspecified; Y92.008 Other place in unspecified non-institutional (private) residence as the place of occurrence of the external cause; Y99.9 Unspecified external cause status
CPT/HCPCS: 70450; 99282; 99284

== ENCOUNTER 2023-03-12 15:36 | Outpatient (AMB) | payer BC, SELFPAY ==
--- NOTE | 2023-03-12 15:38 | A.OFFVIS_ITS ---
Intake Vital Signs 03/12/23 15:50 Height 5 ft 7 in Weight 180 lb 4 oz BMI 28.2 BP 152/65 H Blood Pressure Location Lt brachial Position Sitting Pulse 67 Intake Visit Reasons: 1 mth follow up incarcerated umbilical hernia Intake Note: Patient is seen in office for one month follow up visit, post incarcerated umbilical hernia repair. Pt c/o: regading the hernia repair pt has no concerns, however had a left toe amputation about a week ago at [facility] and would like to have Dr Betancourt take a look at it, still has stitches in place and is schedule for a post op on 03/23/23 Informaticist Required: No Accompanied by: Family/Other Allergies No Known Allergies Allergy (Verified 03/12/23 15:49) HPI HPI Comments History of Present Illness Details 72-year-old male patient returning 1 mon following repair of an incarcerated umbilical hernia. He feels much improved and denies any significant abdominal symptoms at this time. He is eating well and denies any nausea, vomiting, diarrhea or constipation. [facility] Medical History Irreducible umbilical hernia Seizure Diverticulitis Intracranial hemorrhage Diabetes mellitus Aphasia Surgical History H/O umbilical hernia repair (01/20/23) Amputation toe H/O craniotomy Social History Household Members: Family Housing: Apartment Do you presently have visiting nurse or other home services: No Patient Tobacco Use Status: Former Tobacco user Quit Date: Insignificant use. Only very briefly in the 70s Second Hand Smoke Exposure: No service: Yes Physical Exam Const General: no acute distress Resp Effort & Inspection: normal respiratory effort GI Other: Well-healed umbilical incision without redness or discharge. There is an underlying healing ridge with no changes noted with Valsalva maneuvers to indicate a recurrent hernia. Inspection: Yes normal to inspection Palpation (GI): Soft to palpation, nontender and no guarding Extrem Other: Left foot amputation site is clean, dry, and intact without redness or discharge. Assessment & Plan Assessment & Plan (1) Irreducible umbilical hernia: Code(s): K42.0 - Umbilical hernia with obstruction, without gangrene Plan 72-year-old male patient returning following repair of an incarcerated umbilical hernia. He tolerated the procedure well his wounds are healing nicely. He may resume normal activity and should follow up as needed. He will follow-up with his vascular surgeon at [facility] for amputation wound management. Coding Level of Care Code Global (77042) Diagnoses Irreducible umbilical hernia K42.0
[2023-03-12 15:50] VITALS: BP 152/65; PULSE 67; BMI 28.2
== END 2023-03-12 15:50 | disposition home or self-care (01) ==
PROVIDERS: PCP Internal Medicine; Visit Provider Surgery
DX: K42.0 Umbilical hernia with obstruction, without gangrene (principal)
CPT/HCPCS: 99212

== ENCOUNTER → 2023-03-12 15:36 | Outpatient (BNVA) | payer BC, SELFPAY | PROVIDERS: PCP Internal Medicine; Visit Provider Surgery ==